=== PATIENT | male | born 1990 | race Hispanic/Latino ===

== ENCOUNTER → 2018-08-13 | Outpatient (CLI) | payer BC ==
--- NOTE | 2018-08-13 12:42 | Diagnostic Imaging Report ---
PROCEDURE:Ultrasound guided right thyroid nodule fine needle aspiration. COMPARISON:None. INDICATIONS:THYROID NODULE PHYSICIAN: Anjum Caal MD MEDICATION: 10 cc of 1% subcutaneous lidocaine SEDATION: Local EBL: Less than 5 cc. FINDINGS: Informed consent was obtained. Ultrasound was used to identify the previously described right inferior thyroid nodule. The overlying skin was prepped and draped in the usual sterile fashion. Lidocaine 1% was infiltrated into the subcutaneous tissues for local anesthesia. Subsequently, with ultrasound guidance, five fine needle aspirates with 25 gauge needles were performed. Needle was removed. Pathology was present during the procedure and confirmed satisfactory specimen for diagnosis. Post procedural ultrasound demonstrated no evidence of complication. Sterile bandage was placed. CONCLUSION: Ultrasound guided fine needle aspiration of right inferior pole thyroid nodule. Dictated by: ANJUM CAAL M.D. on 08/13/2018 at 12:50 Electronically approved by: ANJUM CAAL M.D. on 08/13/2018 at 12:50
== END ==
LOC: US 08:32
PROVIDERS: ATTEND Family Medicine
DX: E04.1 Nontoxic single thyroid nodule (principal)
CPT/HCPCS: 10022; 76942; 88112; 88305